=== PATIENT | female | born 1995 | race Caucasian/White ===

== ENCOUNTER 2018-10-05 18:11 | Emergency (ER) | payer OTHER ==
[2018-10-05 18:52] VITALS: BP 122/75; PULSE 82; TEMP 98.2; BMI 23.9
--- NOTE | 2018-10-05 18:52 | PDOC ---
Rapid Medical Evaluation Chief Complaint: Pain Time Seen by Provider: 10/05/18 18:49 Medical Evaluation: Allergies Allergy/AdvReac Type Severity Reaction Status Date / Time No Known Allergies Allergy Verified 09/13/13 23:25 10/05/18 18:50 I have performed a brief in-person evaluation of this patient. The patient presents with a chief complaint of: left ankle pain - tripped and twisted left foot/ ankle at work Pertinent physical exam findings: swelling and pain to left lat mall I have ordered the following: ankle , left The patient will proceed to the ED for further evaluation. Discharge Disposition - Diagnosis Left ankle injury Qualifiers: Encounter type: initial encounter Qualified Code(s): S99.912A - Unspecified injury of left ankle, initial encounter - Referrals - Patient Instructions - Post Discharge Activity
[2018-10-05] MEDS ORDERED: IBUPROFEN 400 MG TABLET (FP) PO ONE ×2 (20:26→20:28)
--- NOTE | 2018-10-05 21:43 | PDOC ---
History of Present Illness - General Chief Complaint: Pain Stated Complaint: LT ANKLE INJURY Time Seen by Provider: 10/05/18 18:49 History Source: Patient Exam Limitations: No Limitations Past History - Past Medical History Allergies/Adverse Reactions: Allergies Allergy/AdvReac Type Severity Reaction Status Date / Time No Known Allergies Allergy Verified 10/05/18 18:51 Home Medications: Ambulatory Orders Ibuprofen [Motrin -] 600 mg PO QID #15 tablet 09/14/13 Asthma: Yes - Immunization History Immunization Up to Date: Yes - Suicide/Smoking/Psychosocial Hx Smoking History: Never smoked Have you smoked in the past 12 months: No Information on smoking cessation initiated: No Hx Alcohol Use: No Drug/Substance Use Hx: No *Physical Exam - Vital Signs Last Vital Signs Temp Pulse Resp BP Pulse Ox 98.2 F 82 18 122/75 100 10/05/18 18:49 10/05/18 18:49 10/05/18 18:49 10/05/18 18:49 10/05/18 18:49 - Physical Exam General Appearance: No: Apparent Distress Musculoskeletal: positive: Other (+Swelling and TTP along L lateral malleolus, no deformity, LLE neurovascularly intact) Integumentary: negative: Ecchymosis, Bruising Neurologic: positive: Alert, Normal Mood/Affect ED Treatment Course - Medications Given in the ED: ED Medications Discontinued Medications Generic Name Dose Route Start Last Admin Trade Name Corneliusq PRN Reason Stop Dose Admin Ibuprofen 800 mg 10/05/18 20:26 10/05/18 20:31 Motrin - PO 10/05/18 20:27 800 mg ONCE ONE Administration Medical Decision Making - Medical Decision Making 23 y/o F hx of asthma presents s/p twisting L ankle while running around with kids at work. Denies other trauma Xray shows no fracture Likely ankle sprain Given Motrin, air cast splint, crutches 10/05/18 21:49 *DC/Admit/Observation/Transfer Diagnosis at time of Disposition: Left ankle sprain Qualifiers: Encounter type: initial encounter Involved ligament of ankle: other ligament Qualified Code(s): S93.492A - Sprain of other ligament of left ankle, initial encounter - Discharge Dispostion Disposition: HOME Condition at time of disposition: Stable Decision to Admit order: No - Referrals - Patient Instructions Printed Discharge Instructions: DI for Ankle Sprain, How to Use Crutches Additional Instructions: Thank you for choosing [facility]. It was a pleasure taking care of you. You may take Motrin 600 mg every 6 hours by mouth as needed for mild to moderate pain. Take Motrin with food. Keep leg elevated above level of heart to help decrease swelling Apply ice the first 2 days; you may then switch to warm compresses Follow-up with your doctor in 1 week. Return to the Emergency Department if your symptoms worsen or persist or have other concerning symptoms. - Post Discharge Activity Forms/Work/School Notes: Back to Work
== END 2018-10-05 21:58 | disposition home or self-care (01) ==
LOC: JERFT 18:11
PROC: 2W3RX1Z Immobilization of Left Lower Leg using Splint (ICD-10-PCS; principal; 2018-10-05)
DX: S93.492A Sprain of other ligament of left ankle, initial encounter (principal); X50.1XXA Overexertion from prolonged static or awkward postures, initial encounter; Y93.02 Activity, running; Y92.89 Other specified places as the place of occurrence of the external cause; Y99.0 Civilian activity done for income or pay
CPT/HCPCS: 73610-TC-LT-FY; 99281-25